=== PATIENT | male | born 1960 | race Two or more races ===

== ENCOUNTER 2017-02-14 00:12 | Emergency (ER) | payer BC | END 2017-02-14 01:30 | disposition home or self-care (01) | LOC: CED 00:12 | DX: S61.411A Laceration without foreign body of right hand, initial encounter (principal); Z23 Encounter for immunization; W26.0XXA Contact with knife, initial encounter; Y92.009 Unspecified place in unspecified non-institutional (private) residence as the place of occurrence of the external cause | CPT/HCPCS: 12002; 90471; 90715; 99283 ==

== ENCOUNTER 2017-02-24 08:38 | Emergency (ER) | payer BC | END 2017-02-24 08:59 | disposition home or self-care (01) | LOC: CED 08:38 | DX: Z48.02 Encounter for removal of sutures (principal); I10 Essential (primary) hypertension; E11.9 Type 2 diabetes mellitus without complications | CPT/HCPCS: 99281 ==